=== PATIENT | female | born 1990 | race Hispanic/Latino ===

== ENCOUNTER 2019-07-30 00:57 | Emergency (ER) | payer SELFPAY ==
[2019-07-30] MEDS ORDERED: Ibuprofen 800 MG TAB ONE (01:30)
[2019-07-30] MEDS ORDERED: Acetaminophen 500 MG TAB ONE (01:30)
[2019-07-30] MEDS ORDERED: Dexamethasone 10 MG/ML VIAL ONE (01:30)
== END 2019-07-30 02:57 | disposition home or self-care (01) ==
LOC: ERS 00:57
DX: J02.9 Acute pharyngitis, unspecified (principal); R05 Cough; M79.10 Myalgia, unspecified site; R59.0 Localized enlarged lymph nodes
CPT/HCPCS: 87081; 87430; 87804; 99283; J1100

== ENCOUNTER 2021-02-19 20:56 | Emergency (ER) | payer SELFPAY | END 2021-02-19 22:50 | disposition home or self-care (01) | LOC: ERS 20:56 | DX: L73.9 Follicular disorder, unspecified (principal) | CPT/HCPCS: 99282 ==